=== PATIENT | female | born 1950 | race Caucasian/White ===

== ENCOUNTER → 2017-05-05 | Outpatient (CLI) | payer OTHER, MEDICARE ==
[~2017-05-05] MED LIST: ACET-3017 PO; ACYC-50 PO; AMLO-546 PO; ASPI-1441 PO; ATEN-1 PO; ATEN1TAB PO; ATOR40TA24 PO; AZIT-1 PO; BENZ100C4 PO; CHOL100058 PO; CLOB15CR22 TP; CYC10 PO; HYDR-2946 PO; HYDR15CR4 TP; IBUP1CAP5 PO; LEGATRIN PO; LISI-347 PO; LOSA-54 PO; LOSA-57 PO; MAGN27TA6 PO; METO50TA19 PO; MIR; MULT-1 PO; MULT1CAP59 PO; NAPR-1043 PO; ONDA-153 SL; PIOG30TA3 PO; PNEU0.5D3 IM; POTA99TA6 PO; SIMV-44 PO; SIMV-54 PO; VALS160T20 PO
--- NOTE | 2017-05-05 13:13 | RADIOLOGY IMAGING REPORT ---
[place] [facility] [place] NAME: Anne Melendez : 1950 MR: [id number] V: [id number] EXAM DATE: ORDERING PHYSICIAN: TAYO BARRY TECHNOLOGIST: Location: [facility] Patient: Anne Melendez : 1950 Visit/Account:[id number] Date of Sevice: 05/05/2017 BONE MINERAL DENSITY Additional Pertinent history: Osteoporosis screening COMPARISON STUDIES: 05/13/2014 FINDINGS: LUMBAR SPINE: The bone mineral density (BMD) measured from L1-L4 correlates with a Z-score of 1.8 and a T-score of 0.5 which is normal bone mineral density as defined by the World Health Organization. The correspondi ng risk of fracture in the lumbar spine is not increased compared with a young adult reference popula tion. This value has decreased by 0.3% since the prior study. More than 5% change is considered signi ficant. HIP: Bone mineral density (BMD) measured in the left total hip correlates with a Z-score of 2.9 and a T-s core of 1.8 which is normal bone mineral density as defined by the World Health Organization. The cor responding risk of fracture in the hip is not increased compared with a young adult reference populat ion. Total hip value has decreased by 3.3% since the prior study. More than 5% change is considered s ignificant. Bone mineral density (BMD) measured in the left femoral neck region measures 1.1 g/cm2. IMPRESSION: 1. Lumbar spine: Normal bone mineral density. No significant change. 2. Left hip: Normal bone mineral density. Total hip value has shown no significant change. Left femoral neck: bone mineral density is 1.1 g/cm2 FRAX WHO Fracture Risk Assessment Tool link: http://www.ibeth.ac.uk/FRAX/index.jsp The next DEXA scan of this patient should include the following sites: L1 - L4 and left hip PLEASE NOTE: 1. The World Health Organization defines low BMD as follows: T-score Normal > -1 Osteopenia -1 to -2.5 Osteoporosis < -2.5 without fractures Established osteoporosis < -2.5 with fractures 2. In general, you may wish to consider: Diagnosis Treatment Follow-up DEXA Normal BMD Prevention 2-3 years Osteopenia Prevention/therapy 1-2 years Osteoporosis Therapy Yearly 3. Fracture risk estimated from the T-score is more accurate for vertebral fractures (often spontaneo us) than for hip fractures. Report Dictated By: Guicho López MD at 05/05/2017 1:08 PM Report E-Signed By: Guicho López MD at 05/05/2017 1:11 PM WSN:[email or web address]
== END ==
LOC: RAD 01:34
PROVIDERS: ATTEND Emergency Medicine
DX: M81.0 Age-related osteoporosis without current pathological fracture (principal)
CPT/HCPCS: 77080

== ENCOUNTER → 2017-05-21 | Outpatient (CLI) | payer OTHER, MEDICARE ==
[~2017-05-21] MED LIST changes: +CITA-139 PO; +FLUT16SP19 NS
== END ==
LOC: LAB 09:18
PROVIDERS: ATTEND Emergency Medicine
DX: E78.5 Hyperlipidemia, unspecified (principal); M89.8X9 Other specified disorders of bone, unspecified site
CPT/HCPCS: 36415; 82306; 82465; 83718; 84478

== ENCOUNTER → 2017-06-24 | Outpatient (CLI) | payer OTHER, MEDICARE ==
[~2017-06-24] MED LIST changes: +CITA-157 PO
[2017-06-24 11:17] LABS: PLATELET COUNT, AUTOMATED 273 K/uL (150-450)
== END ==
LOC: LAB 10:54
PROVIDERS: ATTEND Emergency Medicine
DX: E83.52 Hypercalcemia (principal); D75.1 Secondary polycythemia
CPT/HCPCS: 36415; 82310; 83970; 85025

== ENCOUNTER → 2017-06-29 | Outpatient (CLI) | payer OTHER, MEDICARE | LOC: LAB 06-25 12:20 | PROVIDERS: ATTEND Emergency Medicine | DX: R79.89 Other specified abnormal findings of blood chemistry (principal) | CPT/HCPCS: 82340; 82570 ==

== ENCOUNTER → 2017-07-01 | Outpatient (CLI) | payer OTHER, MEDICARE | LOC: LAB 11:42 | PROVIDERS: ATTEND Emergency Medicine | DX: Z02.9 Encounter for administrative examinations, unspecified (principal) ==

== ENCOUNTER → 2017-07-03 | Outpatient (CLI) | payer OTHER, MEDICARE ==
--- NOTE | 2017-07-03 14:44 | EKG ---
FACILITY: [facility] PATIENT NAME: MAUDE FAY : [id number] MR: [id number] V: [id number] EXAM DATE: ORDERING PHYSICIAN: TAYO BARRY TECHNOLOGIST: AQUILINO Test Reason : CHEST DISCOMFORT Blood Pressure : / mmHG Vent. Rate : 075 BPM Atrial Rate : 075 BPM P-R Int : 172 ms QRS Dur : 100 ms QT Int : 412 ms P-R-T Axes : 070 062 054 degrees QTc Int : 460 ms Normal sinus rhythm Normal ECG When compared with ECG of 07-SEP-2015 14:06, Previous ECG has undetermined rhythm, needs review Confirmed by TAYO BARRY ([id number]) on 07/04/2017 9:46:36 AM Referred By: JHONNY Confirmed By:TAYO BARRY
== END ==
LOC: LAB 14:04
PROVIDERS: ATTEND Emergency Medicine
DX: R07.89 Other chest pain (principal)
CPT/HCPCS: 36415; 84484

== ENCOUNTER → 2017-07-06 | Outpatient (REF) | payer OTHER, MEDICARE | LOC: ZZSENDIN 11:03 | PROVIDERS: ATTEND Emergency Medicine | DX: R79.89 Other specified abnormal findings of blood chemistry (principal) | CPT/HCPCS: 82340; 82570 ==

== ENCOUNTER → 2017-07-15 | Outpatient (CLI) | payer OTHER, MEDICARE ==
--- NOTE | 2017-07-15 11:45 | RADIOLOGY IMAGING REPORT ---
FACILITY: [facility] PATIENT NAME: Anne Melendez : 1950 MR: [id number] V: [id number] EXAM DATE: ORDERING PHYSICIAN: TAYO BARRY TECHNOLOGIST: Location: [facility] Patient: Anne Melendez : 1950 Visit/Account:[id number] Date of Sevice: 07/15/2017 THYROID HISTORY: Hyperparathyroidism, primary COMPARISON: None. FINDINGS: SIZE: Normal. Right lobe: 4.2 x 1.5 x 1.4 cm Left lobe: 4.1 x 1.3 x 1.1 cm Isthmus: 2.7 mm PARENCHYMA: Homogeneous. NODULES: Right lobe: * 9 mm cyst mid to lower pole the right lobe. Just posterior to the mid right lobe is a 9 x 4 x 7 m m ovoid hypoechoic structure with a fatty hilum. The appearance is more in keeping with a lymph node Left lobe: * In the lateral aspect the mid left lobe there is a 1.1 x 0.6 x 0.7 cm well-circumscribed partially hyperechoic nodule.. Posterior to the mid left lobe there is a 4.3 mm well-circumscribed hypoechoic nodule which may represent a parathyroid gland Isthmus: * None discrete. VASCULARITY: Within normal limits. ADDITIONAL FINDINGS: None. IMPRESSION: Probable fatty replaced lymph node seen just posterior to the mid right lobe 1.1 cm well-circumscribed partially hyperechoic nodule in the mid left lobe for which six-month follo w-up is recommended 4.3 mm well-circumscribed hypoechoic nodule posterior aspect mid left lobe which may represent a para thyroid gland REFERENCE: 2015 [place] [employer] Management Guidelines for Adult Patients with Thyroid Nodules and D ifferentiated Thyroid Cancer: The [place] [employer] Guidelines Task Force on Thyroid Nodul es and Differentiated Thyroid Cancer. SONOGRAPHIC PATTERNS: * Benign: Purely cystic nodules (no solid component); estimated risk of malignancy <1 percent; no bi opsy recommended. * Very Low Suspicion: Spongiform or partially cystic nodules without any of the sonographic features described in low, intermediate, or high suspicion patterns; estimated risk of malignancy <3 percent; consider FNA at > 2 cm (Observation without FNA is also a reasonable option). * Low Suspicion: Isoechoic or hyperechoic solid nodule, or partially cystic nodule with eccentric so lid areas, without microcalcification, irregular margin or ETE (extra-thyroidal extension), or taller than wide shape; estimated risk of malignancy 5-10 percent; recommend FNA at >1.5 cm. * Intermediate Suspicion: Hypoechoic solid nodule with smooth margins without microcalcifications, E TE (extra-thyroidal extension), or taller than wide shape; estimated risk of malignancy 10-20 percent ; recommend FNA at > 1 cm. * High Suspicion: Solid hypoechoic nodule or solid hypoechoic component of a partially cystic nodule with one or more of the following features: irregular margins (infiltrative, microlobulated), microc alcifications, taller than wide shape, rim calcifications with small extrusive soft tissue component, evidence of ETE (extra-thyroidal extension); estimated risk of malignancy >70-90 percent; recommend FNA at > 1 cm. NOTES: * Although a sonographically suspicious subcentimeter thyroid nodule without evidence of extrathyroi griselda extension or sonographically suspicious lymph nodes may be observed with close sonographic follow -up rather than pursuing immediate FNA, patient age and preference may modify decision-making. A > 50% interval increase in nodule volume and/or development of new suspicious sonographic features are felt to be a valid reasons for potential re-aspiration of a nodule previously shown to have benig n FNA cytology. Report Dictated By: Flora Garcia MD at 07/15/2017 11:37 AM Report E-Signed By: Flora Garcia MD at 07/15/2017 11:41 AM WSN:[email or web address]
--- NOTE | 2017-07-15 16:36 | RADIOLOGY IMAGING REPORT ---
FACILITY: [facility] - [place] PATIENT NAME: Anne Melendez : 1950 MR: [id number] V: [id number] EXAM DATE: ORDERING PHYSICIAN: TAYO BARRY TECHNOLOGIST: Location: [facility] - [place] Patient: Anne Melendez : 1950 Visit/Account:[id number] Date of Sevice: 07/15/2017 EXAMINATION: Single Isotope SPECT Imaging with Exercise and Gated SPECT Imaging DATE OF EXAMINATION: 07/15/17 DATE OF INTERPRETATION: 07/15/17 REQUESTING PHYSICIAN: TAYO BARRY INDICATION: The patient is a 67-year-old F evaluated for shortness of breath. PROCEDURE: After informed consent the patient received an intravenous injection of 13.1 mCi of Tc-9 9m sestamibi followed at the appropriate time interval by rest imaging. The patient then exercised a ccording to the standard Shant protocol for 5 minutes achieving 7 METS. Resting heart rate was 68 bp m with a peak heart rate of 141 bpm which is 92 % of maximal predicted heart rate for age. Blood pr essure at rest was 161 / 99; blood pressure during exercise was 197 / 106. There was no chest pain d uring exercise. Exercise was discontinued because of fatigue. Baseline EKG demonstrates sinus rhyth m. There were no EKG changes of ischemia at peak exercise. Approximately one minute and 30 seconds prior to the termination of exercise, the patient received an intravenous injection of 31.8 mCi of Tc -99m sestamibi followed by stress imaging. RAW DATA: Examination of the summed raw data revealed a good quality study. MYOCARDIAL PERFUSION: The tomographic images demonstrate normal perfusion with no evidence of infarc t or ischemia. There is no TID. GATED IMAGES: The gated images demonstrate hyperdynamic ejection fraction >70% with normal wall bharath on and thickening. IMPRESSION: 1. Normal treadmill ECG 2. Normal myocardial perfusion scan. 3. Hyperdynamic LV systolic function; LVEF >70%. 4. Based on the results of this exam, the patient appears to be at low risk for future cardiovascular events. Report Dictated By: Gerson Lund at 07/15/2017 4:30 PM Report E-Signed By: Gerson Lund at 07/15/2017 4:33 PM WSN:[id number]
== END ==
LOC: RESP 01:01
PROVIDERS: ATTEND Emergency Medicine
DX: E04.1 Nontoxic single thyroid nodule (principal); R07.9 Chest pain, unspecified; E21.0 Primary hyperparathyroidism
CPT/HCPCS: 76536; 78452; 93017; A9500

== ENCOUNTER 2017-11-14 06:48 | Emergency (ER) | payer OTHER, MEDICARE ==
[~2017-11-14 06:48] MED LIST changes: +ATOR-1 PO; -CITA-139 PO; +CITA-145 PO; +METO100T20 PO; -PIOG30TA3 PO; +PIOG30TA71 PO
[2017-11-14] MEDS ORDERED: ASPI-1471 PO (06:59)
--- NOTE | 2017-11-14 07:21 | ER Report ---
History and Physical Time Seen By MD: 07:21 Hx. of Stated Complaint: HEADACHE, BODY ACHES SINCE YESTERDAY. HPI/ROS CHIEF COMPLAINT: Headache and body aches since yesterday HISTORY OF PRESENT ILLNESS: Patient is a 67-year-old female who presents to the emergency department for evaluation of a 1 day's worth of generalized body aches and a bilateral headache. Patient states symptoms began around 4:30 yesterday afternoon. She noticed some nausea associated at onset which is resolving. She has had no episodes of vomiting or diarrhea. She denies any abdominal pain. She denies fever at home. She denies any chills. She denies chest pain or shortness of breath. She has no known ill contacts. Patient works at [employer]. No known coworkers with similar illness. REVIEW OF SYSTEMS: Constitutional: No fever, no chills. Eyes: No discharge. ENT: No sore throat. Cardiovascular: No chest pain, no palpitations. Respiratory: No cough, no shortness of breath. Gastrointestinal: No abdominal pain, no vomiting. Genitourinary: No hematuria. Musculoskeletal: Generalized body aches Skin: No rashes. Neurological: Generalized headache Allergies: Coded Allergies: pioglitazone (Verified Allergy, Severe, DIARRHEA, 09/04/16) amlodipine (Verified Allergy, Unknown, 09/07/15) MAKES HER SWELL metformin (Verified Allergy, Unknown, 09/04/16) olmesartan (Verified Allergy, Unknown, 09/07/15) MAKES HER SWELL Uncoded Allergies: CATFISH (Allergy, Unknown, 09/07/15) Home Meds Active Scripts Citalopram Hydrobromide (CELEXA) 40 Mg Tablet, 40 MG PO QDAY, #90 TAB 3 Refills Prov:TAYO BARRY MD 08/04/17 Fluticasone Prop 50 Mcg Ns (FLONASE 50 MCG NS) 16 Gm Arley.susp, 2 SPRAYS NS QDAY, #1 BOT 11 Refills Prov:TAYO BARRY MD 07/31/17 Losartan/Hydrochlorothiazide (LOSARTAN-HCTZ 100-25 MG TAB) 1 Each Tablet, 1 TAB PO QDAY, #90 TAB 2 Refills Prov:TAYO BARRY MD 07/30/17 Atorvastatin Calcium (ATORVASTATIN CALCIUM) 80 Mg Tablet, 1 TAB PO QDAY, #90 TAB 3 Refills Prov:TAYO BARRY MD 07/28/17 Metoprolol Succinate (METOPROLOL SUCCINATE) 100 Mg Tab.er.24h, 1 TAB PO QDAY, #90 TAB 3 Refills Prov:TAYO BARRY MD 07/28/17 Acetaminophen With Codeine # 3 (TYLENOL WITH CODEINE #3 TABLET) 1 Each Tablet, 1 EACH PO Q4-6H PRN for PAIN/HEADACHE, #60 TAB Prov:TAYO BARRY MD 06/09/17 Hydrocortisone Valerate 0.2% 15 Gm Cream (HYDROCORTISONE VALERATE 0.2% 15 GM CREAM) 15 Gm Cream..g., 30 GM TP BID for 30 Days, #1 TUBE 2 Refills Prov:FRANCOISE LUONG NPC 03/13/17 Reported Medications Aspirin (ASPIR 81) 81 Mg Tablet.dr, 81 MG PO QDAY, TAB 11/14/17 Discontinued Scripts Acyclovir (ACYCLOVIR) 400 Mg Tablet, 400 MG PO BID for 30 Days, #60 TAB 9 Refills Prov:SHELBY MANCIA MD 12/23/16 Past Medical/Surgical History Past medical history for hyperlipidemia, hypertension, hypertriglyceridemia, depression, hyperparathyroidism, cholecystectomy, GI surgery, squamous cell cancer Hx Smoking: No Smoking Status: Never Smoker Exposure to Second Hand Smoke?: Yes ( smokes currently) Hx Substance Use Disorder: No Hx Alcohol Use: No Constitutional Vital Sign - Last 24 Hours 11/14/17 06:54 Temp 98.5 Pulse 80 Resp 18 B/P (MAP) 163/86 Pulse Ox 91 O2 Delivery Room Air Physical Exam General/Constitutional: Patient is awake, alert, nontoxic and in no acute respiratory distress. Head: Normocephalic and atraumatic. Eyes: Conjunctival clear, Sclera are clear and anicteric. Ears:External canals are clear. Tympanic membranes are clear with normal landmarks and light reflex. Nares: No rhinorrhea or bleeding. Turbinates are pink and moist. Oropharyngeal: Mucous membranes are moist. There is no pharyngeal erythema or exudate. There are no palatal petechiae. Uvula is midline and symmetrical. Neck: Supple, no adenopathy. Cardiovascular: Heart is regular rate and rhythm without audible murmurs, rubs or gallops. Pulmonary: Lungs are clear to auscultation bilaterally. There are no wheezes, rales, or rhonchi. Chest rise is symmetrical Abdomen: Soft, nontender, no guarding or peritoneal signs. Extremities: No gross deformities, No peripheral cyanosis. Able to move all 4 extremities. Neuro: Alert and oriented X3, Skin: No rashes, skin is warm dry and well perfused. Medical Decision Making Data Points Result Diagram: 11/14/17 0745 11/14/17 0745 Laboratory Hematology Test 11/14/17 07:45 11/14/17 08:00 Red Blood Count 4.90 M/uL (4.17-5.56) Mean Corpuscular Volume 91.3 fL (80.0-96.0) Mean Corpuscular Hemoglobin 32.5 pg (26.0-33.0) Mean Corpuscular Hemoglobin Concent 35.5 g/dL (32.0-36.0) Red Cell Distribution Width 12.8 % (11.5-14.5) Mean Platelet Volume 7.4 fL (7.2-11.1) Neutrophils (%) (Auto) 83.1 % (39.4-72.5) Lymphocytes (%) (Auto) 8.9 % (17.6-49.6) Monocytes (%) (Auto) 7.3 % (4.1-12.4) Eosinophils (%) (Auto) 0.3 % (0.4-6.7) Basophils (%) (Auto) 0.4 % (0.3-1.4) Nucleated RBC Relative Count (auto) 0.0 /100WBC Neutrophils # (Auto) 5.0 K/uL (2.0-7.4) Lymphocytes # (Auto) 0.5 K/uL (1.3-3.6) Monocytes # (Auto) 0.4 K/uL (0.3-1.0) Eosinophils # (Auto) 0.0 K/uL (0.0-0.5) Basophils # (Auto) 0.0 K/uL (0.0-0.1) Nucleated RBC Absolute Count (auto) 0.00 K/uL Peripheral Blood Smear No Y/N Sodium Level 136 mmol/L (137-145) Potassium Level 3.3 mmol/L (3.5-5.0) Chloride Level 99 mmol/L (98-107) Carbon Dioxide Level 26 mmol/L (22-31) Blood Urea Nitrogen 16 mg/dl (7-18) Creatinine 0.90 mg/dl (0.52-1.04) Glomerular Filtration Rate Calc > 60.0 Random Glucose 112 mg/dl (75-110) Calcium Level 9.3 mg/dl (8.4-10.2) Total Bilirubin 1.2 mg/dl (0.2-1.3) Aspartate Amino Transf (AST/SGOT) 32 U/L (0-35) Alanine Aminotransferase (ALT/SGPT) 44 U/L (0-56) Alkaline Phosphatase 87 U/L (0-126) Total Creatine Kinase 70 U/L (30-135) Total Protein 6.7 g/dl (6.3-8.2) Albumin 4.3 g/dl (3.5-5.0) Urine Color Straw Urine Clarity Clear Urine pH 7.0 pH (4.8-9.5) Urine Specific Cascade 1.005 Urine Protein Negative mg/dL (NEGATIVE) Urine Glucose (UA) Negative mg/dL (NEGATIVE) Urine Ketones Negative mg/dL (NEGATIVE) Urine Blood Negative (NEGATIVE) Urine Nitrite Negative (NEGATIVE) Urine Bilirubin Negative (NEGATIVE) Urine Urobilinogen Negative mg/dL (0.2-1.9) Urine Leukocyte Esterase Trace (NEGATIVE) Urine RBC <1 /HPF (0-2/HPF) Urine WBC 1 /HPF (0-5/HPF) Urine Squamous Epithelial Cells Moderate /LPF (</=FEW) Urine Transitional Epithelial Cells Few /LPF (NONE-FEW) Urine Bacteria Negative /HPF (NONE-FEW) Urine Mucus None /HPF (NONE-FEW) Chemistry Test 11/14/17 07:45 11/14/17 08:00 White Blood Count 6.1 k/uL (4.5-11.0) Red Blood Count 4.90 M/uL (4.17-5.56) Hemoglobin 15.9 g/dL (12.0-16.0) Hematocrit 44.7 % (34.0-47.0) Mean Corpuscular Volume 91.3 fL (80.0-96.0) Mean Corpuscular Hemoglobin 32.5 pg (26.0-33.0) Mean Corpuscular Hemoglobin Concent 35.5 g/dL (32.0-36.0) Red Cell Distribution Width 12.8 % (11.5-14.5) Platelet Count 249 K/uL (150-450) Mean Platelet Volume 7.4 fL (7.2-11.1) Neutrophils (%) (Auto) 83.1 % (39.4-72.5) Lymphocytes (%) (Auto) 8.9 % (17.6-49.6) Monocytes (%) (Auto) 7.3 % (4.1-12.4) Eosinophils (%) (Auto) 0.3 % (0.4-6.7) Basophils (%) (Auto) 0.4 % (0.3-1.4) Nucleated RBC Relative Count (auto) 0.0 /100WBC Neutrophils # (Auto) 5.0 K/uL (2.0-7.4) Lymphocytes # (Auto) 0.5 K/uL (1.3-3.6) Monocytes # (Auto) 0.4 K/uL (0.3-1.0) Eosinophils # (Auto) 0.0 K/uL (0.0-0.5) Basophils # (Auto) 0.0 K/uL (0.0-0.1) Nucleated RBC Absolute Count (auto) 0.00 K/uL Peripheral Blood Smear No Y/N Glomerular Filtration Rate Calc > 60.0 Calcium Level 9.3 mg/dl (8.4-10.2) Total Bilirubin 1.2 mg/dl (0.2-1.3) Aspartate Amino Transf (AST/SGOT) 32 U/L (0-35) Alanine Aminotransferase (ALT/SGPT) 44 U/L (0-56) Alkaline Phosphatase 87 U/L (0-126) Total Creatine Kinase 70 U/L (30-135) Total Protein 6.7 g/dl (6.3-8.2) Albumin 4.3 g/dl (3.5-5.0) Urine Color Straw Urine Clarity Clear Urine pH 7.0 pH (4.8-9.5) Urine Specific Cascade 1.005 Urine Protein Negative mg/dL (NEGATIVE) Urine Glucose (UA) Negative mg/dL (NEGATIVE) Urine Ketones Negative mg/dL (NEGATIVE) Urine Blood Negative (NEGATIVE) Urine Nitrite Negative (NEGATIVE) Urine Bilirubin Negative (NEGATIVE) Urine Urobilinogen Negative mg/dL (0.2-1.9) Urine Leukocyte Esterase Trace (NEGATIVE) Urine RBC <1 /HPF (0-2/HPF) Urine WBC 1 /HPF (0-5/HPF) Urine Squamous Epithelial Cells Moderate /LPF (</=FEW) Urine Transitional Epithelial Cells Few /LPF (NONE-FEW) Urine Bacteria Negative /HPF (NONE-FEW) Urine Mucus None /HPF (NONE-FEW) Urinalysis Test 11/14/17 08:00 Urine Color Straw Urine Clarity Clear Urine pH 7.0 pH (4.8-9.5) Urine Specific Cascade 1.005 Urine Protein Negative mg/dL (NEGATIVE) Urine Glucose (UA) Negative mg/dL (NEGATIVE) Urine Ketones Negative mg/dL (NEGATIVE) Urine Blood Negative (NEGATIVE) Urine Nitrite Negative (NEGATIVE) Urine Bilirubin Negative (NEGATIVE) Urine Urobilinogen Negative mg/dL (0.2-1.9) Urine Leukocyte Esterase Trace (NEGATIVE) Urine RBC <1 /HPF (0-2/HPF) Urine WBC 1 /HPF (0-5/HPF) Urine Squamous Epithelial Cells Moderate /LPF (</=FEW) Urine Transitional Epithelial Cells Few /LPF (NONE-FEW) Urine Bacteria Negative /HPF (NONE-FEW) Urine Mucus None /HPF (NONE-FEW) EKG/Imaging Imaging FACILITY: [facility] PATIENT NAME: Anne Melendez : 1950 MR: [id number] V: [id number] EXAM DATE: ORDERING PHYSICIAN: KEITH MAZARIEGOS TECHNOLOGIST: [place] [facility] [place] : 1950 Visit/Account:[id number] Date of Sevice: 11/14/[address] scan without contrast COMPARISONS: None ADDITIONAL PERTINENT HISTORY: Headache for 2 days. TECHNIQUE: Multiple axial images were obtained from the skull base to the vertex without IV contrast. One of the following dose optimization techniques was utilized in the performance of this exam: Automated exposure control; adjustment of the mA and/or kV according to the patient's size; or use of an iterative reconstruction technique. Specific details can be referenced in the facility's radiology CT exam operational policy. FINDINGS: Midline shift: Negative Ventricles: Negative Brain parenchyma: Negative Extra-axial spaces: Negative Intracranial vasculature: Cavernous internal carotid artery calcifications. Otherwise negative Osseous structures: Negative Paranasal sinuses and mastoid air cells: Negative Surrounding soft tissues and orbits: Negative IMPRESSION: No evidence of acute intracranial pathology. Report Dictated By: Misael Strange MD at 11/14/2017 9:36 AM Report E-Signed By: Misael Strange MD at 11/14/2017 9:38 AM WSN:[email or web address] ED Course/Re-evaluation ED Course 11/14/2017 7:52:21 am After history and physical exam was performed differential diagnosis was formulated which includes but is not limited to viral syndrome, myositis, urinary tract infection, upper respiratory infection. Plan at this time will be to treat the symptoms we will give IV Toradol and IV flu ids. We will check CBC, CMP and CPK along with urinalysis. Decision to Disposition Date: Nov 14, 2017 Decision to Disposition Time: 09:49 Depart Departure Latest Vital Signs Vital Signs Date Time Temp Pulse Resp B/P (MAP) Pulse Ox O2 Delivery O2 Flow Rate FiO2 11/14/17 06:54 98.5 80 18 163/86 91 Room Air Impression: Primary Impression: Headache Additional Impression: Body aches Condition: Improved Disposition: HOME OR SELF-CARE Referrals: TAYO BARRY MD (PCP) 2 Days if symptoms persist Patient Instructions: Acute Headache (GEN) Additional Instructions: Motrin or Tylenol as directed for pain. Follow-up with your primary care provider in 48 hours if symptoms persist. Return if you develop fever or worsening symptoms at any time. Problem Qualifiers Primary Impression: Headache Headache type: tension-type Headache chronicity pattern: acute headache Intractability: not intractable Qualified Codes: G44.209 - Tension-type headache, unspecified, not intractable KEITH MAZARIEGOS MD Nov 14, 2017 07:21
[2017-11-14] MEDS ORDERED: NS(*) 0.9% 1000 ML BAG 1,000 ML IV ONE (07:39)
[2017-11-14] MEDS ORDERED: KETOROLAC 30 MG/ML VIAL IVP ONE (07:40)
[2017-11-14 07:52] LABS: PLATELET COUNT, AUTOMATED 249 K/uL (150-450)
[2017-11-14] MEDS ORDERED: fentaNYL CITR 100 MCG/2 ML AMP IVP ONE (08:40)
[2017-11-14 09:30] VITALS: BP 128/81
--- NOTE | 2017-11-14 09:43 | RADIOLOGY IMAGING REPORT ---
FACILITY: [facility] PATIENT NAME: Anne Melendez : 1950 MR: [id number] V: [id number] EXAM DATE: ORDERING PHYSICIAN: KEITH MAZARIEGOS TECHNOLOGIST: Location: [facility] [place] Patient: Anne Melendez : 1950 Visit/Account:[id number] Date of Sevice: 11/14/[address] scan without contrast COMPARISONS: None ADDITIONAL PERTINENT HISTORY: Headache for 2 days. TECHNIQUE: Multiple axial images were obtained from the skull base to the vertex without IV contrast . One of the following dose optimization techniques was utilized in the performance of this exam: Aut omated exposure control; adjustment of the mA and/or kV according to the patient's size; or use of an iterative reconstruction technique. Specific details can be referenced in the facility's radiology CT exam operational policy. FINDINGS: Midline shift: Negative Ventricles: Negative Brain parenchyma: Negative Extra-axial spaces: Negative Intracranial vasculature: Cavernous internal carotid artery calcifications. Otherwise negative Osseous structures: Negative Paranasal sinuses and mastoid air cells: Negative Surrounding soft tissues and orbits: Negative IMPRESSION: No evidence of acute intracranial pathology. Report Dictated By: Misael Strange MD at 11/14/2017 9:36 AM Report E-Signed By: Misael Strange MD at 11/14/2017 9:38 AM WSN:[email or web address]
== END 2017-11-14 10:00 | disposition home or self-care (01) ==
LOC: ER 06:54
DX: G44.209 Tension-type headache, unspecified, not intractable (principal)
CPT/HCPCS: 70450; 81001; 82550; 85025; 96361; 96374; 99284; J1885; J7030; 82040; 82247; 82310; 82374; 82435; 82565; 82947; 84075; 84132; 84155; 84295; 84450; 84460; 84520

== ENCOUNTER → 2018-01-15 | Outpatient (CLI) | payer OTHER, MEDICARE ==
[~2018-01-15] MED LIST changes: +ASPI-1471 PO
--- NOTE | 2018-01-15 09:40 | RADIOLOGY IMAGING REPORT ---
FACILITY: [facility] - [place] PATIENT NAME: Anne Melendez : 1950 MR: [id number] V: [id number] EXAM DATE: ORDERING PHYSICIAN: TAYO BARRY TECHNOLOGIST: Location: [facility] [place] Patient: Anne Melendez : 1950 Visit/Account:[id number] Date of Sevice: 01/15/2018 THYROID HISTORY: Left lobe nodule history COMPARISON: July 15, 2017 FINDINGS: SIZE: Normal. Right lobe: 4 x 1.2 x 1.4 cm Left lobe: 3.9 x 1.4 x 1.1 cm Isthmus: 2.3 mm PARENCHYMA: Homogeneous. NODULES: Right lobe: * There are two cysts in the mid to inferior right lobe largest measuring 8 mm in diameter. Left lobe: * In the mid left lobe there is a 9 mm well-circumscribed hypoechoic nodule that appears hypervascul ar and appears relatively unchanged in size Isthmus: * None discrete. VASCULARITY: Within normal limits. ADDITIONAL FINDINGS: None. IMPRESSION: 9 mm well-circumscribed hypoechoic nodule mid left lobe appears stable when compared the prior study REFERENCE: 2015 [place] [employer] Management Guidelines for Adult Patients with Thyroid Nodules and D ifferentiated Thyroid Cancer: The [place] [employer] Guidelines Task Force on Thyroid Nodul es and Differentiated Thyroid Cancer. SONOGRAPHIC PATTERNS: * Benign: Purely cystic nodules (no solid component); estimated risk of malignancy <1 percent; no bi opsy recommended. * Very Low Suspicion: Spongiform or partially cystic nodules without any of the sonographic features described in low, intermediate, or high suspicion patterns; estimated risk of malignancy <3 percent; consider FNA at > 2 cm (Observation without FNA is also a reasonable option). * Low Suspicion: Isoechoic or hyperechoic solid nodule, or partially cystic nodule with eccentric so lid areas, without microcalcification, irregular margin or ETE (extra-thyroidal extension), or taller than wide shape; estimated risk of malignancy 5-10 percent; recommend FNA at >1.5 cm. * Intermediate Suspicion: Hypoechoic solid nodule with smooth margins without microcalcifications, E TE (extra-thyroidal extension), or taller than wide shape; estimated risk of malignancy 10-20 percent ; recommend FNA at > 1 cm. * High Suspicion: Solid hypoechoic nodule or solid hypoechoic component of a partially cystic nodule with one or more of the following features: irregular margins (infiltrative, microlobulated), microc alcifications, taller than wide shape, rim calcifications with small extrusive soft tissue component, evidence of ETE (extra-thyroidal extension); estimated risk of malignancy >70-90 percent; recommend FNA at > 1 cm. NOTES: * Although a sonographically suspicious subcentimeter thyroid nodule without evidence of extrathyroi griselda extension or sonographically suspicious lymph nodes may be observed with close sonographic follow -up rather than pursuing immediate FNA, patient age and preference may modify decision-making. A > 50% interval increase in nodule volume and/or development of new suspicious sonographic features are felt to be a valid reasons for potential re-aspiration of a nodule previously shown to have benig n FNA cytology. Report Dictated By: Flora Garcia MD at 01/15/2018 9:31 AM Report E-Signed By: Flora Garcia MD at 01/15/2018 9:35 AM WSN:[id number]
--- NOTE | 2018-01-15 10:50 | RADIOLOGY IMAGING REPORT ---
FACILITY: [facility] PATIENT NAME: MAUDE FAY : [id number] MR: [id number] V: [id number] EXAM DATE: [id number] ORDERING PHYSICIAN: TAYO BARRY TECHNOLOGIST: Anne Marie Bazzi PROCEDURE:BILATERAL DIGITAL SCREENING MAMMOGRAM WITH CAD ASSISTED INTERPRETATION & 3D TOMOSYNTHESIS COMPARISON:Prior mammograms 01/23/16, 12/31/13, 05/29/12, 04/24/11. INDICATIONS:screening FINDINGS: A small amount of fibroglandular tissue is seen throughout the breasts. The parenchymal pattern has remained stable allowing for difference in mammographic technique & patient positioning. There is no evidence of malignant appearing mass, malignant appearing calcifications or other secondary sign of malignancy in either breast. DIAGNOSTIC CATEGORY 1--NEGATIVE. RECOMMENDATIONS: ROUTINE MAMMOGRAM AND CLINICAL EVALUATION. IMPRESSION: BIRADS 1: Negative. No significant abnormality is seen. Dictated by: Flora Garcia M.D. on 01/15/2018 at 10:39 Transcribed by: CLIFF on 01/15/2018 at 10:44 Approved by: Flora Garcia M.D. on 01/15/2018 at 10:48 [facility]
== END ==
LOC: MAMO 00:40
PROVIDERS: ATTEND Emergency Medicine
DX: Z12.31 Encounter for screening mammogram for malignant neoplasm of breast (principal); E04.1 Nontoxic single thyroid nodule; E21.0 Primary hyperparathyroidism; E78.5 Hyperlipidemia, unspecified
CPT/HCPCS: 36415; 76536; 77063; 77067; 82310; 82465; 83036; 83718; 84478

== ENCOUNTER → 2018-01-29 | Outpatient (CLI) | payer OTHER, MEDICARE ==
[~2018-01-29] MED LIST changes: +DIPH0.5D12 IM; +FLU180SY11 IM
== END ==
LOC: LAB 10:42
PROVIDERS: ATTEND Emergency Medicine
DX: R20.8 Other disturbances of skin sensation (principal); I10 Essential (primary) hypertension
CPT/HCPCS: 36415; 82310; 82374; 82435; 82565; 82607; 82947; 84132; 84295; 84520

== ENCOUNTER → 2018-02-10 | Outpatient (CLI) | payer OTHER, MEDICARE ==
[~2018-02-10] MED LIST changes: +CYA1000 PO
--- NOTE | 2018-02-10 15:11 | RADIOLOGY IMAGING REPORT ---
[place]AC[place] [facility] [place] NAME: Anne Melendez : 1950 MR: [id number] V: [id number] EXAM DATE: ORDERING PHYSICIAN: TAYO BARRY TECHNOLOGIST: Location: [facility] [place] Patient: Anne Melendez : 1950 Visit/Account:[id number] Date of Sevice: 02/10/2018 CHEST W/O CONTRAST HISTORY: Pulmonary nodule; follow-up. TECHNIQUE: CT chest without intravenous contrast. One of the following dose optimization techniques was utilized in the performance of this exam: Autom ated exposure control; adjustment of the mA and/or kV according to the patient's size; or use of an i terative reconstruction technique. Specific details can be referenced in the facility's radiology C T exam operational policy. CONTRAST: None. COMPARISON: Chest x-ray 06/25/2016 FINDINGS: Heart/vessels: Mild calcific atherosclerosis coronary arteries. Mediastinum: Negative. Lymph nodes: No bulky adenopathy. Lungs/pleura: Very mild and benign-appearing biapical pleural parenchymal pulmonary scarring. Severa l bilateral noncalcified pulmonary nodules. 2 mm nodule posterior right apex (4/97), 4 x 5 mm right l ower lobe nodule along fissure (4/199), 5 mm pleural-based nodule posterior medial right lower lobe ( 4/213), 2 mm nodule superior segment left lower lobe along fissure (4/124), 2 mm nodule anterolateral left upper lobe (4/139). Calcified right middle lobe micronodule consistent with old granulomatous d isease. No pulmonary infiltrate. No pleural fluid. Visualized upper abdomen: Gallbladder surgically absent. Mild pancreatic atrophy. Bones/soft tissues: Disc degenerative changes visualized inferior cervical and mid to inferior thora cic spines. Small bone island left humeral head. No suspicious osseous lesion. IMPRESSION: 1. No findings to correlate with those described on chest x-ray 06/2016, likely having represented sum mation artifact secondary to patient's clothing and/or bronchovascular structures. 2. Several bilateral less than or equal to 5 mm noncalcified pulmonary nodules. Please see Fleischner Society recommendations below. 3. Coronary atherosclerosis. FLEISCHNER SOCIETY FOLLOW-UP GUIDELINES FOR NEWLY DETECTED INCIDENTAL NODULES IN PERSONS 35 YEARS OF AGE OR OLDER. *These recommendations do NOT apply to lung cancer screening, patient's with immunosuppression or pat ients with a known primary malignancy. MULTIPLE SOLID NODULES If largest nodule size is less than 6 mm: Low risk patient - No follow up needed. High risk patient - Optional CT at 12 months. LOW RISK PATIENT: Minimal or absent history of tobacco use and of other known risk factors. HIGH RISK PATIENT: Tobacco use, family history of lung cancer, upper pulmonary lobe location of nodul e, presence of emphysema, pulmonary fibrosis, older age. Alex H, Alicia DP, Rubina OROURKE, et al. Guidelines for Management of Incidental Pulmonary Nodules Dete cted on CT Images: From the Fleischner Society 2017. Radiology. Report Dictated By: Iftikhar Martin MD at 02/10/2018 2:56 PM Report E-Signed By: Iftikhar Martin MD at 02/10/2018 3:06 PM WSN:[id number]
== END ==
LOC: CT 01:14
PROVIDERS: ATTEND Emergency Medicine
DX: R91.1 Solitary pulmonary nodule (principal); I25.10 Atherosclerotic heart disease of native coronary artery without angina pectoris
CPT/HCPCS: 71250

== ENCOUNTER → 2018-07-28 | Outpatient (CLI) | payer OTHER, MEDICARE ==
[~2018-07-28] MED LIST changes: -DIPH0.5D12 IM; +DIPH0.5S2 IM
== END ==
LOC: LAB 08:21
PROVIDERS: ATTEND Emergency Medicine
DX: E21.3 Hyperparathyroidism, unspecified (principal); I10 Essential (primary) hypertension; E53.8 Deficiency of other specified B group vitamins
CPT/HCPCS: 36415; 82310; 82374; 82435; 82565; 82607; 82947; 84132; 84295; 84520

== ENCOUNTER → 2018-11-05 | Outpatient (CLI) | payer OTHER, MEDICARE ==
--- NOTE | 2018-11-05 09:07 | EKG ---
FACILITY: [facility] [place] PATIENT NAME: MAUDE FAY : [id number] MR: [id number] V: [id number] EXAM DATE: ORDERING PHYSICIAN: JAKOB HENSLEY TECHNOLOGIST: NORMA Arredondo Reason : PREOP-HAND Blood Pressure : / mmHG Vent. Rate : 051 BPM Atrial Rate : 051 BPM P-R Int : 156 ms QRS Dur : 100 ms QT Int : 488 ms P-R-T Axes : 033 037 036 degrees QTc Int : 449 ms Normal sinus rhythm Unchanged from previous Confirmed by CAREY SALMON ([id number]) on 11/05/2018 7:11:02 PM Referred By: SHELLIE Confirmed By:CAREY SALMON
== END ==
LOC: LAB 08:43
PROVIDERS: ATTEND Anesthesiology
DX: Z01.812 Encounter for preprocedural laboratory examination (principal); Z01.810 Encounter for preprocedural cardiovascular examination; M65.331 Trigger finger, right middle finger; M19.041 Primary osteoarthritis, right hand; M77.02 Medial epicondylitis, left elbow
CPT/HCPCS: 36415; 82040; 82247; 82310; 82374; 82435; 82565; 82947; 84075; 84132; 84155; 84295; 84450; 84460; 84520; 93005